=== PATIENT | female | born 2000 | race Caucasian/White ===

== ENCOUNTER → 2022-01-22 | Outpatient (CLI) | payer BC ==
[2022-01-22 13:44] LABS: BASO # 0.04 K/mm3 (0.02-0.10); EOS # 0.02 K/mm3 (0.04-0.40); EOS % 0.3 % (1.0-5.0); HEMATOCRIT 40.9 % (37.0-47.0); HEMOGLOBIN 13.2 g/dL (12.5-16.0); LYMPH# 1.99 K/mm3 (1.50-4.00); MEAN CELL VOLUME 72 fl (78-100); MEAN CORPUSCULAR HEMOGLOBIN 23 pg (27-31); MEAN CORPUSCULAR HGB CONC 32 g/dL (33-37); MEAN PLATELET VOLUME 10.7 fl (7.4-10.4); MONO # 0.77 K/mm3 (0.20-0.80); NEU # 4.74 K/mm3 (1.40-6.50); PLATELET COUNT 322 K/mm3 (130-400); RED BLOOD COUNT 5.72 M/mm3 (4.10-5.30); RED CELL DISTRIBUTION WIDTH 21.5 % (11.5-14.5); WHITE BLOOD COUNT 7.6 K/mm3 (4.8-10.8)
[2022-01-22 13:49] LABS: ALBUMIN 4.3 g/dL (3.5-5.0); SODIUM 141 mmol/L (136-145)
[2022-01-22 13:50] LABS: CALCIUM 9.2 mg/dL (8.3-10.5)
[2022-01-22 13:51] LABS: GLUCOSE 100 mg/dL (65-105)
[2022-01-22 13:52] LABS: TOTAL PROTEIN 7.2 g/dL (6.4-8.3)
[2022-01-22 13:53] LABS: CARBON DIOXIDE 23 mmol/L (22-29); TOTAL BILIRUBIN 0.3 mg/dL (0.2-1.2)
[2022-01-22 13:57] LABS: AST-SGOT 14 U/L (5-34)
[2022-01-22 13:58] LABS: ALT/SGPT 13 U/L (0-55)
[2022-01-22 14:04] LABS: TROPONIN-I < 0.030 ng/mL (<0.030)
[2022-01-22 14:21] LABS: D-DIMER 0.32 mg/L FEU (0.15-0.50)
== END ==
LOC: LAB 13:32
PROVIDERS: Nurse Practitioner Family
DX: U07.1 COVID-19 (principal)